=== PATIENT | male | born 1960 | race Caucasian/White ===

== ENCOUNTER → 2016-11-11 | Outpatient (CLI) | payer BC ==
[~2016-11-11] MED LIST: ASPIRIN EC81 MG PO; MEVACOR20 MG PO; NORVASC5 MG PO; TYLENOL WITH C1 EACH PO
== END | disposition disaster alternative care site (69) ==
LOC: GRAD 07:51
DX: N20.0 Calculus of kidney (principal)

== ENCOUNTER → 2016-11-15 | Day surgery (SDC) | payer BC ==
[~2016-11-15] VITALS: Ht 185.4 cm; Wt 78.7 kg
--- NOTE | ~2016-11-15 | OR ---
PATIENT'S NAME: CATHY GARY [facility] AGE: 56 Y [address] ROOM: [place] [address] [place] [facility] [place] DATE: 11/15/2016 OR/Procedure Report DISCHARGE DATE: FAMILY PHYSICIAN: Izabela Chaparro PA-C ATTENDING PHYSICIAN: Lyle Hollingsworth SURGEON: Lyle Hollingsworth MD WEAVER AXMINSTER: DATE OF PROCEDURE: 11/15/2016 PREOPERATIVE DIAGNOSIS: Left nephrolithiasis. POSTOPERATIVE DIAGNOSIS: Left nephrolithiasis. PROCEDURE PERFORMED: Cystoscopy, left stent placement, left ESWL. ANESTHESIA: MAC. COMPLICATIONS: None. INDICATION FOR PROCEDURE: The patient is a 56-year-old male with a history of nephrolithiasis with a 1.3 cm left lower pole stone. DETAILS OF PROCEDURE: After informed consent was obtained, the patient was taken to the operating room. A MAC anesthetic was applied. He was placed in the dorsal lithotomy position. The groin area was prepped and draped in normal sterile fashion. Cystoscope was introduced into the urethra and bladder without difficulty. The left ureteral orifice was then cannulated with a guidewire up into the renal pelvis. Next, a 6-Hungarian multi-length ureteral stent was passed over guidewire up into the renal pelvis. Radiograph imaging showed good positioning of the stent. The patient was then placed on the lithotripsy table in the supine position. His lower pole stone was then targeted with fluoroscopy. The patient received shocks starting at 16 kilovolts and gradually increased to 24 kilovolts. The patient received a total of 3000 shocks with good fragmentation of his lower pole stones. The patient tolerated the procedure well and was transferred to the recovery room in good condition. LYLE HOLLINGSWORTH MD HESHAM/modl PATIENT'S NAME: CATHY GARY [facility] AGE: 56 Y [address] ROOM: [place] [address] LOCATION: [facility] [place] DATE: 11/15/2016 OR/Procedure Report DISCHARGE DATE: FAMILY PHYSICIAN: Izabela Chaparro PA-C ATTENDING PHYSICIAN: Lyle Hollingsworth /[id number] CC: Izabela Chaparro PA-C d: 11/15/167 t: 11/19/16 1237, OPERATIVE SUMMARY
[2016-11-15 12:40] LABS: BASOPHIL % 0.3 %; EOSINOPHIL # 0.6 K/uL (0.0-0.5); EOSINOPHIL % 6.3 %; HEMOGLOBIN 16.4 g/dL (12.0-17.0); IMMATURE GRANULOCYTE % 0.3 %; LYMPHOCYTE # 1.6 K/uL (0.8-4.0); LYMPHOCYTE % 17.2 %; MCH 30.5 pg (27.0-34.0); MCHC 34.2 gm/dL (32.0-36.5); MCV 89.4 fl (83.0-98.0); MONOCYTE % 10.5 %; MPV 9.9 fl (9.4-12.4); NEUTROPHIL # (ANC) 5.9 K/uL (1.4-9.0); NEUTROPHIL % 65.4 %; NRBC % 0 /100WBC (0-0.00); PLATELET COUNT 349 K/uL (150-450); RBC 5.37 M/uL (4.00-6.00); RDW-CV 12.4 % (11.9-14.6); WBC 9.1 K/uL (4.0-11.0)
[2016-11-15 12:57] LABS: ALBUMIN 3.9 gm/dL (3.5-5.0); ALK PHOS 181 IU/L (33-138); ALT 25 IU/L (12-78); AST 24 IU/L (10-40); BLOOD UREA NITROGEN 11 mg/dL (6-24); CALCIUM 8.9 mg/dL (8.5-10.5); CHLORIDE 105 mMol/L (96-110); CO2 24 mMol/L (22-32); CREATININE 0.9 mg/dL (0.6-1.3); ESTIMATED GFR (MDRD EQUATION) > 60; SODIUM 137 mMol/L (135-145); TOTAL BILIRUBIN 0.9 mg/dL (0.0-1.5); TOTAL PROTEIN 8.3 g/dL (6.0-8.4)
== END | disposition disaster alternative care site (69) ==
LOC: GPOC 11-11 16:00 → GSDC 11:26
PROVIDERS: Urology
PROC: 0T778DZ Dilation of Left Ureter with Intraluminal Device, Via Natural or Artificial Opening Endoscopic (ICD-10-PCS; principal; 2016-11-15)
PROC: 0TF4XZZ Fragmentation in Left Kidney Pelvis, External Approach (ICD-10-PCS; 2016-11-15)
DX: N20.0 Calculus of kidney (principal); I10 Essential (primary) hypertension; E78.00 Pure hypercholesterolemia, unspecified; M19.90 Unspecified osteoarthritis, unspecified site; Z87.442 Personal history of urinary calculi; Z90.49 Acquired absence of other specified parts of digestive tract; Z98.890 Other specified postprocedural states
CPT/HCPCS: C1769; J1100; J1956; J2405; J7030

== ENCOUNTER → 2016-12-09 | Outpatient (CLI) | payer BC | END | disposition disaster alternative care site (69) | LOC: GRAD 08:54 | DX: N20.0 Calculus of kidney (principal); Z96.0 Presence of urogenital implants ==